=== PATIENT | female | born 1965 | race Caucasian/White ===

== ENCOUNTER → 2016-12-26 | Outpatient (CLI) | payer OTHER | LOC: RAD 04:00 | DX: Z12.31 Encounter for screening mammogram for malignant neoplasm of breast (principal) ==

== ENCOUNTER → 2017-01-03 | Outpatient (CLI) | payer OTHER | LOC: RAD 07:22 | DX: N63 Unspecified lump in breast (principal) ==

== ENCOUNTER → 2019-07-30 | Outpatient (CLI) | payer OTHER | LOC: RAD 08:52 | DX: Z12.31 Encounter for screening mammogram for malignant neoplasm of breast (principal) ==